=== PATIENT | male | born 1955 | race African-American/Black ===

== ENCOUNTER 2018-08-25 03:06 | Emergency (ER) | payer OTHER ==
[~2018-08-25] VITALS: Ht 172.7 cm; Wt 86.0 kg
[2018-08-25] MEDS ORDERED: ONDANSETRON 4MG ODT PO STA (03:27)
[2018-08-25 03:44] LABS: BASOPHILS % 0.9 % (0.0-2.0); EOSINOPHILS % 1.5 % (0.0-5.0); HEMATOCRIT. 43.2 % (42.0-52.0); HEMOGLOBIN. 14.6 g/dL (14.0-18.0); LYMPHOCYTES % 48.9 % (20.0-50.0); MEAN CORPUSCULAR HEMOGLOBIN 29.3 pg (28.0-32.0); MEAN CORPUSCULAR VOLUME 86.9 fL (80.0-94.0); MONOCYTES % 12.1 % (2.0-8.0); NEUTROPHILS % 36.6 % (40.0-76.0); PLATELET 299 x1000/uL (130-400); RED BLOOD CELL COUNT 4.98 mill/uL (4.7-6.1); RED CELL DISTRIBUTION WIDTH 14.2 % (11.6-14.6)
[2018-08-25 03:45] LABS: CHLORIDE 107 mEq/L (98-107)
[2018-08-25 03:52] LABS: ETHANOL BLOOD < 10 mg/dL
[2018-08-25 03:56] LABS: CREATINE KINASE 906 IU/L (39-308)
[2018-08-25] MEDS ORDERED: POTASSIUM CHLORIDE 20MEQ TABLET SR PO SCH (05:13)
[2018-08-25 05:45] VITALS: BP 128/59
== END 2018-08-25 05:46 | disposition home or self-care (01) ==
LOC: ER 03:06
DX: R06.4 Hyperventilation (principal); F41.9 Anxiety disorder, unspecified
CPT/HCPCS: 36415; 71045; 80053; 80307; 80320; 80329; 82550; 84443; 85025; 93005; 99284; Q0162; G0480